=== PATIENT | male | born 1995 | race Caucasian/White ===

== ENCOUNTER 2019-02-08 01:55 | Emergency (ER) | payer MEDICAID ==
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
[2019-02-08 02:26] LABS: PLATELET COUNT 343 10^3/uL (150-400)
[2019-02-08] MEDS ORDERED: NS 1,000 ML IV ONE (07:43)
[2019-02-08] MEDS ORDERED: LORazepam 1 MG TAB PO ONE ×2 (12:06→14:39)
[2019-02-08] MEDS ORDERED: IBUPROFEN 600 MG TAB PO ONE (14:08)
[2019-02-08] MEDS ORDERED: chlordiazePOXIDE 25 MG CAP PO ONE (22:24)
[2019-02-08] MEDS ORDERED: OLANZapine DISINTEGR 5 MG TAB PO ONE (22:31)
--- NOTE | 2019-02-08 22:56 | ASMTLCPROG ---
Notes Note: Notes: Per Dr. Trevino, the patient will remain in the ED for overnight observations and re-assessment. Date Signed: 02/08/2019 10:03 PM Electronically Signed By:Pamela Lopez
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
--- NOTE | 2019-02-09 05:44 | ASMTTCLDSP ---
TLC Discharge Disposition Disposition: Answers: Discharge If Answers: Yes DISCHARGED: Patient/family given suicide hotline info & SAMHSA brochure? Disposition Notes: Notes: Pt stated commitment or ability to keep self safe, denied thoughts of self harm or harm to others. Pt expressed a desire to f/u with Withdrawal Management/[facility] and WIC. Pt was given local hotline information and SAMHSA brochure After an Attempt and encouraged to follow up with [facility]. Discharge Concerns/Recommendations: Notes: In consultation with [facility] ED physician, Eulogio Lopes MD, Dr. Lopes concurred that pt does not appear to meet 27-65 criteria requiring psychiatric hospitalization as pt does not appear to be an imminent risk of harm to self/others/gravely disabled due to a mental illness condition. Dr. Lopes provided verbal order read back vacating M1 hold at 0535 hrs. Was patient given the Answers: Not applicable Inpatient Behavioral Health Prohibited Belongings List while in the ED? Psychiatrist vacating M1 Eulogio Lopes MD Hold: Date and time M1 hold 02/09/2019 05:35 AM vacated (time format is hh:mm): Type of Hold: Answers: M1/72-hour Hold Hold initiated by: Answers: Police Date Signed: 02/09/2019 05:43 AM Electronically Signed By:Abebe Moise
[2019-02-09] MEDS ORDERED: LORazepam 1 MG TAB PO ONE (06:14)
[2019-02-09 08:35] VITALS: BP 125/74
== END 2019-02-09 08:51 | disposition home or self-care (01) ==
LOC: EDUNIT#
DX: F19.10 Other psychoactive substance abuse, uncomplicated (principal); F29 Unspecified psychosis not due to a substance or known physiological condition
CPT/HCPCS: 80305; G0480; J0574